=== PATIENT | male | born 1960 | race African-American/Black ===

== ENCOUNTER 2023-09-15 17:41 | Emergency (ER) | payer BC ==
[2023-09-15 18:47] VITALS: BP 133/87; PULSE 89; RESP 16; TEMP 99.1; BMI 28.0
[2023-09-15] MEDS ORDERED: ACETAMINOPHEN 500 MG TABLET (FP) PO ONE (18:47)
[2023-09-15] MEDS ORDERED: ACETAMINOPHEN 325 MG TABLET (FP) ONE (18:53)
== END 2023-09-15 19:32 | disposition home or self-care (01) ==
LOC: FER 17:41
DX: R05.9 Cough, unspecified (principal); J06.9 Acute upper respiratory infection, unspecified; Z20.822 Contact with and (suspected) exposure to COVID-19
CPT/HCPCS: 71045-TC-FY; 99283-25